=== PATIENT | male | born 1970 | race Caucasian/White ===

== ENCOUNTER 2016-11-05 22:49 | Emergency (ER) | payer OTHER ==
[~2016-11-05] VITALS: Ht 175.3 cm; Wt 117.9 kg
[2016-11-05 23:19] VITALS: BP 137/78
[2016-11-06] MEDS ORDERED: IBUPROFEN 400 MG TABLET PO ONE
[2016-11-06] MEDS ORDERED: IBUPROFEN 400 MG TABLET ONE (00:14)
== END 2016-11-06 01:10 | disposition home or self-care (01) ==
LOC: ER 22:52
DX: S83.92XA Sprain of unspecified site of left knee, initial encounter (principal); X58.XXXA Exposure to other specified factors, initial encounter; Y93.66 Activity, soccer; Y92.89 Other specified places as the place of occurrence of the external cause; Y99.9 Unspecified external cause status
CPT/HCPCS: 73564-TC; A4606; Z7610